=== PATIENT | female | born 1975 | race Caucasian/White ===

== ENCOUNTER 2019-04-21 20:25 | Emergency (ER) | payer BC, SELFPAY ==
[2019-04-21 20:26] VITALS: BP 118/65; PULSE 88; RESP 16; TEMP 38.8; O2SAT 99; BMI 30.3
[2019-04-21 21:23] VITALS: BP 107/73; PULSE 91; RESP 18; O2SAT 100
--- NOTE | 2019-04-21 21:43 | ED.VISSUMM ---
- ER Visit Summary Date of Service: 04/21/19 Chief Complaint: [Allergic reaction] History of Present Illness: The patient is a 44 F [the emergency department with a rash that started about 2 days ago initially. Patient states it started on her right wrist. Patient is currently on amoxicillin after having her wisdom teeth extracted about a week ago. She was placed on this empirically. Patient states the rash really worsened today and is diffuse and pruritic. Patient complains of facial redness and itching. She denies difficulty breathing. She denies difficulty swallowing. She denies recent illness otherwise and states that her teeth feel great. She has not had urinary symptoms. She did have one episode of nausea and vomiting while in the emergency department. Patient also was noted to be febrile on arrival to the emergency department.] Physical Examination: [HEENT-PERRLA, EOMI. Cranial nerves II through XII grossly intact. TMs clear. Mucous membranes moist. No adenopathy. Cardiovascular-regular rate and rhythm without murmur or ectopy Lungs-clear to auscultation, chest wall stable without crepitus or subcu emphysema Abdomen-normoactive bowel sounds, soft, nontender, no rebound or rigidity, no peritoneal signs. Skin exam-patient has a diffuse erythematous rash involving the face, trunk, and extremities. Rash is typical of a drug eruption rash. The rash is inflammatory. The rash is pruritic. There is no evidence of angioedema. No lip lesions. No ulcerations of the mucous membranes. Extremities-intact ?4, normal range of motion, normal pulses, atraumatic] Test Results: [None indicated] Emergency Department Course and Treatment: [Patient was advised to discontinue the amoxicillin and to claim an allergy to it in the future. Patient was started on prednisone. Patient was given a dose of Tylenol. It is possible patient may be coming down with a viral syndrome as well given the fever without a source.] Treatment Plan: [Patient advised to push fluids and we will treat with prednisone for 5 days. Patient use Benadryl for itching. Patient to follow-up with primary care physician in 3 to 5 days.] Disposition: [Discharged home in stable condition] Impression: [Allergic reaction to amoxicillin Fever-etiology uncertain] This note was generated with [employer] dictation software. It may contain incorrect words, spelling, and punctuation that were not noted in review of the chart prior to signing ED Disposition - Plan for ED Patient: Referrals: Care Physician,No Primary [Primary Care Provider] -
--- NOTE | 2019-04-21 21:46 | ED.DEP ---
ED Disposition - Plan for ED Patient: Instructions: ALLERGIC REACTION, Drug Prescriptions: Prednisone [Deltasone] 20 mg PO BID #10 tab Prescription Printed Referrals: Care Physician,No Primary [Primary Care Provider] - Juanito Adkins MD [STAFF PHYSICIAN] - 3-5 Days
[2019-04-21] MEDS: Acetaminophen 500 MG Tablet 1000 MG PO (21:47)
[2019-04-21] MEDS: predniSONE 20 MG Tablet 40 MG PO (21:47)
--- NOTE | 2019-04-21 21:47 | ED.DEP ---
ED Disposition - Plan for ED Patient: Instructions: ALLERGIC REACTION, Drug Prescriptions: Prednisone [Deltasone] 20 mg PO BID #10 tab Prescription Printed Ondansetron [Zofran Odt] 4 mg PO Q8H PRN PRN #10 tab PRN Reason: Nausea Prescription Printed Referrals: Juanito Adkins MD [STAFF PHYSICIAN] - 3-5 Days Care Physician,No Primary [Primary Care Provider] -
[2019-04-21 21:49] VITALS: PULSE 90; O2SAT 100
[2019-04-21] MEDS: Ondansetron ODT 4 MG Tablet PO (21:50)
== END 2019-04-21 21:52 | disposition home or self-care (01) ==
PROVIDERS: Emergency Provider Emergency Medicine
DX: L27.1 Localized skin eruption due to drugs and medicaments taken internally (principal); R50.9 Fever, unspecified; R11.2 Nausea with vomiting, unspecified; T36.0X5A Adverse effect of penicillins, initial encounter; Y92.9 Unspecified place or not applicable; Z98.818 Other dental procedure status
CPT/HCPCS: 99283; A4216

== ENCOUNTER 2019-04-23 17:27 | Observation (INO) | payer BC, SELFPAY ==
[2019-04-23] VITALS (7 sets, daily range): BP systolic 103–113; BP diastolic 53–84; PULSE 76–887; RESP 16–20; TEMP 36.8–39.4; O2SAT 94–100; BMI 30.5
[2019-04-23] MEDS: 0.9% Normal Saline 1,000 ML 15 ML IV (18:01)
[2019-04-23] MEDS: DiphenhydrAMINE 50 MG/ML Syringe 25 MG IV (18:02)
[2019-04-23 18:06] LABS: International Normalized Ratio 1.3; Prothrombin Time (Protime)PT. 16.2 SECONDS (11.7-14.9)
[2019-04-23 18:07] LABS: Partial Thromboplast Time 31.2 Seconds (24.1-36.2)
[2019-04-23 18:13] LABS: Anion Gap 5 (5-15); BUN 18 mg/dL (7-18); BUN/Creat Ratio 11.2 RATIO (10-20); Calcium,Total 7.8 mg/dL (8.5-10.1); Chloride 97 mmol/L (98-107); EST Glomerular Filtration Rate 37 mL/min (>60); Est Glom Filt Rate - Afr Amer 45 mL/min (>60); Estimated Creatinine Clearance 43.18 ml/min; Glucose 114 mg/dL (74-106); Potassium 4.1 mmol/L (3.5-5.1); Sodium Level 129 mmol/L (136-145)
[2019-04-23 18:39] LABS: Absolute Lymphocyte Count 1.06 X10^3/ul (0.83-4.51); Absolute Neutrophil Count 28.9 X10^3/uL (2.0-7.7); Basophil# 0.05 X10^3/uL; Basophil% 0.2 % (0-1); Eosinophils% 3.1 % (0-5); Hematocrit 45.2 % (37-47); Hemoglobin 15.7 g/dl (12.0-15.0); Lymphocyte # 1.06 X10^3/ul (4.0); Lymphocyte % 3.3 % (19-41); Mean Corp Hgb Conc 34.7 g/gl (32-36); Mean Corpuscular Hgb 31.8 pg (27.0-32.0); Mean Corpuscular Volume 91.7 fL (81-99); Mean Platelet Vol. 10.8 fl (6.2-12.0); Monocyte% 2.8 % (0-10); Neutrophil # 28.89 X10^3/uL (2.7-7.7); Neutrophil % 88.5 % (47-70); Platelet Count 216 K/mm3 (150-450); RBC Distribution Width CV 12.5 % (11.6-14.6); RBC Distribution Width SD 41.6 fl (35.1-43.9); Red Blood Count 4.93 M/mm3 (4.2-5.4)
[2019-04-23 18:40] LABS: POSITIVE COUNT YES; POSITIVE DIFFERENTIAL YES
[2019-04-23 18:41] LABS: Differential Indicated SCAN CRITERIA MET; POSITIVE MORPHOLOGY YES
[2019-04-23 18:42] LABS: White Blood Count 32.6 K/mm3 (4.4-11.0)
[2019-04-23] MEDS: 0.9% Normal Saline 1,000 ML 999 ML IV (19:05)
[2019-04-23 19:25] LABS: Anisocytosis RARE; Differential Comment SEE COMMENTS; Macrocytosis RARE; Platelet Estimate ADEQUATE (ADEQ)
[2019-04-23] MEDS: Acetaminophen 500 MG Tablet 1000 MG PO (19:52)
[2019-04-23 20:10] LABS: Mucous, Urine 0 SEEN /hpf (<or=2+)
[2019-04-23 20:25] LABS: Color, Urine Yellow (Yellow); Glucose, Dipstick Normal (Normal); Ketone-Dipstick 5 mg/dl (Negative); Leukocyte Esterase-Dipstick 500 /ul (Negative); Nitrite-Dipstick Negative (Negative); Occult Blood-Urine 10 /ul (Negative); Protein-Dipstick 30 mg/dl (Negative); Urine Bilirubin Dipstick Negative (Negative); Urine Clarity Clear (Clear); Urine Urobilinogen Normal (Normal)
[2019-04-23 20:39] LABS: Bacteria 1+ /hpf (None Seen); Red Blood Cells-Urine 0-5 SEEN /hpf (0-5); Squamous Epithelial Cells - UA 5-10 SEEN /hpf (5-10); White Blood Cells 50-100 SEEN /hpf (0-5)
[2019-04-23 22:22] LABS: Erythrocyte Sedimentation Rate 13 mm/hr (0-20)
--- NOTE | 2019-04-23 22:23 | ED.VISSUMM ---
- ER Visit Summary Date of Service: 04/23/19 Chief Complaint: Facial swelling History of Present Illness: The patient is a 44 F who had a dental extraction approximately April 14. She was started on amoxicillin and broke out in a rash. She was seen in this ER 2 days ago. At that time note describes diffuse rash over her face, trunk, and extremities. She was started on prednisone and her amoxicillin was stopped. Patient did have a fever on that visit. Patient reports her rash is improving and her itching is resolved but she now has swelling noted to her face. She denies throat tightness or difficulty swallowing. Physical Examination: Blood pressure is 113/84, temperature 102.8, heart rate 105, respiratory rate 17, pulse ox 99% on room air. Head neck examination reveals diffuse facial edema and erythema. There is no tongue edema noted. Posterior pharynx is normal. Heart is regular rate and rhythm. Lung sounds are clear. Abdomen is soft nontender. Skin examination reveals slightly raised rash diffusely over her face, trunk, and extremities. There is some ecchymosis noted on her forearms. Test Results: Due to continued elevation in temperature laboratory work-up was initiated. Her white count is 32.6 with 88% neutrophils. Hemoglobin is 15.7. Chemistry studies reveal a sodium of 129 and a creatinine 1.6. INR is normal. Urinalysis shows 50-100 white cells with 1+ bacteria. Emergency Department Course and Treatment: Patient was initially given Benadryl, Pepcid, and Tylenol. We did discuss the potential of facial swelling caused from steroids, but her reaction seems to be quite significant. She also has a significantly elevated white count that I cannot contribute solely to her steroids. Patient does have evidence of a UTI, but also continues to have significant rash. She will be covered with a dose of cefepime and vancomycin. Blood and urine cultures have been obtained. We will check lactic acid, CRP, and sed rate. Patient be admitted overnight for continued monitoring and medications. Treatment Plan: [] Disposition: Admit Impression: 1. Rash 2. Facial edema 3. Renal insufficiency 4. Hyponatremia 5. UTI 6. Fever This note was generated with [employer]ation software. It may contain incorrect words, spelling, and punctuation that were not noted in review of the chart prior to signing ED Disposition - Plan for ED Patient: Referrals: Care Physician,No Primary [Primary Care Provider] -
[2019-04-23 22:40] LABS: Lactic Acid 1.5 mmol/L (0.4-2.0)
--- NOTE | 2019-04-23 22:56 | HP.PCM_ITS ---
Problem List (1) Allergic reaction Status: Acute History of Present Illness Date of Admission: 04/23/19 Chief Complaint: swelling of face The patient is a 44 year old F who recently had 3 of her wisdom teeth pulled out about 6 days ago and was started on amoxicillin presenting with swelling of her face. When patient was started on amoxicillin she developed a rash on her wrists. This rash spread to her entire body. She was then given prednisone. After she had taken prednisone she developed swelling of her face and she attributes the swelling of her face to the prednisone. Past Medical History Medical History: Medical History (Last Updated 04/24/19 @ 08:52 by Isael Montague MD) Denies any previous medical history (Acute) Allergies amoxicillin Allergy (Verified 04/23/19 17:35) Hives Home Medications: Ambulatory Orders Medication Instructions Recorded Multivit-Min/Iron/Folic Acid/K 1 ea PO DAILY 04/23/19 [Multi For Her Softgel] Turmeric 400 mg PO DAILY 04/23/19 Surgical History: - - 3 wisdom teeth pulled out Lives: Spouse/ Significant Other Smoking Status: Never smoker Alcohol: None - *Family History Maternal History Items: Diabetes Paternal History Items: Heart Disease Review of Systems Constitutional: Denies: Chills, Fever, Weight Change HEENT: Denies: Head Aches, Sinus Congestion, Sinus Drainage Cardiovascular: Denies: Chest Pain, Palpitations Respiratory: Denies: Cough, Shortness of breath at rest, Sputum production Gastrointestinal: Denies: Abdominal Pain, Nausea, Vomiting Genitourinary: Denies: Dysuria Musculoskeletal: Denies: Joint Pain, Joint Tenderness Skin: Reports: Rash. Denies: Wounds Neurological: Denies: Numbness, Tingling, Focal weakness Psychiatric: Denies: Anxiety, Depression, Homicidal Ideations, Suicidal Ideations Hematologic/ Lymphatic: Denies: Easy Bruising, Easy Bleeding VTE Information - Inpt Only VTE Present on Admission: No VTE Mechan Device Prophylaxis: SCD's, None VTE Pharm Prophylaxis ordered?: Yes Patient Problems: Active and Suspected Problems Allergic reaction (Acute) - Physical Exam General: Alert, Oriented x3, Cooperative HEENT: Atraumatic, PERRLA, EOMI, Normocephalic Neck: Supple, No JVD, Negative Carotid Bruits Lungs: Clear to auscultation, Normal air movement Cardiovascular: Regular rate, No murmurs Abdomen: Bowel Sounds Present, Soft, Non Tender Extremities: No edema, Capillary Refill Less than 3 Seconds Skin: - - Facial edema with morbilliform and diffuse petechial rash on the body. Musculoskeletal: No Tenderness to Palpation of Joints or Extremities Neurological: Cranial nerves II-XII grossly intact Psych/Mental Status: Normal Affect, Appropriate Vital Signs Temp Pulse Resp BP Pulse Ox 98.4 F 79 20 H 104/59 L 95 04/23/19 22:16 04/23/19 22:16 04/23/19 22:16 04/23/19 22:16 04/23/19 22:16 Oxygen Delivery Method Room Air Weight: 88.4 kg Body Mass Index (BMI) 30.5 Laboratory Tests Past 24 Hrs 04/23/19 04/23/19 04/23/19 17:34 17:34 17:34 WBC 32.6 H* RBC 4.93 Hgb 15.7 H Hct 45.2 MCV 91.7 MCH 31.8 MCHC 34.7 RDW 12.5 RDW Differential 41.6 Plt Count 216 MPV 10.8 Immature Gran % (Auto) 2.100 H Neut % (Auto) 88.5 H Lymph % (Auto) 3.3 L [place] % (Auto) 2.8 Eos % (Auto) 3.1 Baso % (Auto) 0.2 Absolute Neuts (auto) 28.9 H Absolute Lymphs (auto) 1.06 Total Counted Not Reportable Differential Comment SEE COMMENTS Diff Path Review May foll Platelet Estimate ADEQUATE Anisocytosis RARE Macrocytosis RARE ESR PT 16.2 H INR 1.3 APTT 31.2 Sodium 129 L Potassium 4.1 Chloride 97 L Carbon Dioxide 27.0 Anion Gap 5 BUN 18 Creatinine 1.60 H Estim Creat Clear Calc 43.18 Est GFR (MDRD) Af Amer 45 L Est GFR (MDRD) Non-Af 37 L BUN/Creatinine Ratio 11.2 Glucose 114 H Lactic Acid Calcium 7.8 L C-React Prot Ext Range Urine Color Urine Clarity Urine pH Ur Specific [place] Urine Protein Urine Glucose (UA) Urine Ketones Urine Occult Blood Urine Nitrite Urine Bilirubin Urine Urobilinogen Ur Leukocyte Esterase Urine RBC Urine WBC Ur Squamous Epith Cells Urine Bacteria Urine Mucus 04/23/19 04/23/19 04/23/19 17:34 17:34 19:59 WBC RBC Hgb Hct MCV MCH MCHC RDW RDW Differential Plt Count MPV Immature Gran % (Auto) Neut % (Auto) Lymph % (Auto) [place] % (Auto) Eos % (Auto) Baso % (Auto) Absolute Neuts (auto) Absolute Lymphs (auto) Total Counted Differential Comment Diff Path Review Platelet Estimate Anisocytosis Macrocytosis ESR 13 PT INR APTT Sodium Potassium Chloride Carbon Dioxide Anion Gap BUN Creatinine Estim Creat Clear Calc Est GFR (MDRD) Af Amer Est GFR (MDRD) Non-Af BUN/Creatinine Ratio Glucose Lactic Acid Calcium C-React Prot Ext Range 136.00 H Urine Color Yellow Urine Clarity Clear Urine pH 6.[address] [place] 1.010 Urine Protein 30 H Urine Glucose (UA) Normal Urine Ketones 5 H Urine Occult Blood 10 H Urine Nitrite Negative Urine Bilirubin Negative Urine Urobilinogen Normal Ur Leukocyte Esterase 500 H Urine RBC 0-5 SEEN Urine WBC 50-100 SEEN Ur Squamous Epith Cells 5-10 SEEN Urine Bacteria 1+ Urine Mucus 0 SEEN 04/23/19 22:05 WBC RBC Hgb Hct MCV MCH MCHC RDW RDW Differential Plt Count MPV Immature Gran % (Auto) Neut % (Auto) Lymph % (Auto) [place] % (Auto) Eos % (Auto) Baso % (Auto) Absolute Neuts (auto) Absolute Lymphs (auto) Total Counted Differential Comment Diff Path Review Platelet Estimate Anisocytosis Macrocytosis ESR PT INR APTT Sodium Potassium Chloride Carbon Dioxide Anion Gap BUN Creatinine Estim Creat Clear Calc Est GFR (MDRD) Af Amer Est GFR (MDRD) Non-Af BUN/Creatinine Ratio Glucose Lactic Acid 1.5 Calcium C-React Prot Ext Range Urine Color Urine Clarity Urine pH Ur Specific [place] Urine Protein Urine Glucose (UA) Urine Ketones Urine Occult Blood Urine Nitrite Urine Bilirubin Urine Urobilinogen Ur Leukocyte Esterase Urine RBC Urine WBC Ur Squamous Epith Cells Urine Bacteria Urine Mucus Assessment/Plan All Active Problems Allergic reaction (Acute) The patient is a 44 year old F who recently had 3 of her wisdom teeth pulled out and was started on amoxicillin and later on prednisone for rash presenting with swelling of her face; diffuse body rash consistent with allergic drug reaction; also found to have abnormal urinalysis; and severely elevated leukocytosis with bandemia.. Allergic drug reaction At the emergency department patient was given vancomycin and cefepime. We will hold off vancomycin and cefepime and will consult infectious disease. Patient is stable and does not have a compromise of airway. Wound do work-up for vasculitis and ANCA ordered. CRP and ESR ordered. Hepatitis work-up ordered. Epinephrine. Ordered. Scheduled loratadine ordered. Scheduled Benadryl and PRN Benadryl ordered. Scheduled Pepcid ordered. Trend CBC and BMP Probable OLGA On presentation her creatinine was 1.60. No previous creatinine to compare with. Receive normal saline bolus in the emergency department. Ordered BMP showed that her creatinine has trended down. Will assume prerenal. However, rely OLGA from acute drug reaction. We will continue on gentle IV hydration. Avoid nephrotoxins Neutrophilic leukocytosis On presentation her white count was 32.6. This could be from prednisone use and acute drug reaction. Trend CBC. Probable cystitis Although patient has no urinary symptoms because of her acute rash and with abnormal urinalysis we will treat for UTI. Prophylaxis Subcutaneous Lovenox Code Visit Inpatient E&M: 80058 Init Hosp L3
[2019-04-24 00:15] VITALS: BP 101/61; PULSE 76; RESP 18; TEMP 36.8; O2SAT 99
[2019-04-24 00:24] VITALS: BMI 30.5
[2019-04-24] MEDS: Loratadine 10 MG Tablet PO ×2 (01:42→11:19)
[2019-04-24 05:51] VITALS: BP 137/55; PULSE 89; RESP 16; TEMP 37.7; O2SAT 100
[2019-04-24] MEDS: DiphenhydrAMINE 25 MG Capsule PO ×3 (05:55→21:42)
[2019-04-24 07:41] LABS: Anion Gap 5 (5-15); BUN 16 mg/dL (7-18); BUN/Creat Ratio 13.3 RATIO (10-20); Calcium,Total 7.2 mg/dL (8.5-10.1); Chloride 103 mmol/L (98-107); EST Glomerular Filtration Rate 52 mL/min (>60); Est Glom Filt Rate - Afr Amer 63 mL/min (>60); Estimated Creatinine Clearance 57.57 ml/min; Glucose 97 mg/dL (74-106); Potassium 4.2 mmol/L (3.5-5.1); Sodium Level 134 mmol/L (136-145)
[2019-04-24 08:24] VITALS: BP 108/61; PULSE 86; RESP 14; TEMP 38.2; O2SAT 100
--- NOTE | 2019-04-24 10:19 | PN_ITS ---
Patient Problems: Active and Suspected Problems (Last Updated 04/24/19 @ 08:52 by Isael Montague MD) Allergic reaction (Acute) Denies any previous medical history (Acute) Subjective: Chief complaint: Follow-up after admission for acute drug reaction, acute kidney injury and hyponatremia. Patient seen and examined. No acute events overnight. She still having significant rash all over her body, maculopapular rash. Swelling of the face still the same. No significant itching. Her skin is very hot to palpation. She has been having spikes of low-grade fever, blood pressure and heart rate are stable, pulse ox is maintained on room air. - Physical Exam General: Alert, Oriented x3, Cooperative, No apparent distress HEENT: Atraumatic, PERRLA, EOMI, Normocephalic Oral: Moist Mucosa, No Gingival or Mucosal Lesions/ Ulcerations Neck: Supple, No JVD, Negative Carotid Bruits, Trachea Midline, Thyroid Normal Size and Texture Lungs: Clear to auscultation, Normal air movement, No rhonchi, No wheeze, No rales, Diminished Cardiovascular: Regular rate, Regular Rhythm, Normal S1, Normal S2 Abdomen: Bowel Sounds Present, Soft, Non Tender, Non-Distended, No Hepato- splenomegaly Extremities: No clubbing, No cyanosis, No edema Skin: No breakdown, Rash Present - Diffuse maculopapular skin rash involving face, upper chest and trunk, bilateral upper and lower extremities, more marked on the face and both upper extremities. Face is diffusely swollen. Lymphatic: No Cervical, Supraclavicular, or Inguinal Adenopathy Neurological: Cranial nerves II-XII grossly intact, Motor Exam 5/5 strength throughout Psych/Mental Status: Normal Affect, Appropriate, Alert and oriented to time, place, person, mood and affect Vital Signs Temp Pulse Resp BP Pulse Ox 100.8 F H 86 14 108/61 100 04/24/19 08:24 04/24/19 08:24 04/24/19 08:24 04/24/19 08:24 04/24/19 08:24 Oxygen Delivery Method Room Air Weight: 194 lb 14.218 oz Body Mass Index (BMI) 30.5 Intake and Output for Last 24 Hours 04/22/19 04/23/19 04/24/19 23:59 23:59 23:59 Intake Total 300 / 300 Balance 300 / 300 Laboratory Tests Past 24 Hrs 04/23/19 04/23/19 04/23/19 17:34 17:34 17:34 WBC 32.6 H* RBC 4.93 Hgb 15.7 H Hct 45.2 MCV 91.7 MCH 31.8 MCHC 34.7 RDW 12.5 RDW Differential 41.6 Plt Count 216 MPV 10.8 Immature Gran % (Auto) 2.100 H Neut % (Auto) 88.5 H Lymph % (Auto) 3.3 L [place] % (Auto) 2.8 Eos % (Auto) 3.1 Baso % (Auto) 0.2 Absolute Neuts (auto) 28.9 H Absolute Lymphs (auto) 1.06 Total Counted Not Reportable Differential Comment SEE COMMENTS Diff Path Review May foll Platelet Estimate ADEQUATE Anisocytosis RARE Macrocytosis RARE ESR PT 16.2 H INR 1.3 APTT 31.2 Sodium 129 L Potassium 4.1 Chloride 97 L Carbon Dioxide 27.0 Anion Gap 5 BUN 18 Creatinine 1.60 H Estim Creat Clear Calc 43.18 Est GFR (MDRD) Af Amer 45 L Est GFR (MDRD) Non-Af 37 L BUN/Creatinine Ratio 11.2 Glucose 114 H Lactic Acid Calcium 7.8 L C-React Prot Ext Range Urine Color Urine Clarity Urine pH Ur Specific [place] Urine Protein Urine Glucose (UA) Urine Ketones Urine Occult Blood Urine Nitrite Urine Bilirubin Urine Urobilinogen Ur Leukocyte Esterase Urine RBC Urine WBC Ur Squamous Epith Cells Urine Bacteria Urine Mucus Serum Cryoglobulins [place] Screen c-ANCA Antibody p-ANCA Antibody JOSETTE-1 Antibody SS-A/Ro IgG Antibody SS-B/La IgG Antibody Sm (Adkins) Antibody WOOL SPOTTER Antibody Scl-70 Scleroderma Ab Double Strand DNA Ab Centromere B Antibody Complement C3 Complement C4 Tot Complement (CH50) Hepatitis A IgM Ab Hep Bs Antigen Hep B Core IgM Ab Hepatitis C Ab (EIA) 04/23/19 04/23/19 04/23/19 17:34 17:34 19:59 WBC RBC Hgb Hct MCV MCH MCHC RDW RDW Differential Plt Count MPV Immature Gran % (Auto) Neut % (Auto) Lymph % (Auto) [place] % (Auto) Eos % (Auto) Baso % (Auto) Absolute Neuts (auto) Absolute Lymphs (auto) Total Counted Differential Comment Diff Path Review Platelet Estimate Anisocytosis Macrocytosis ESR 13 PT INR APTT Sodium Potassium Chloride Carbon Dioxide Anion Gap BUN Creatinine Estim Creat Clear Calc Est GFR (MDRD) Af Amer Est GFR (MDRD) Non-Af BUN/Creatinine Ratio Glucose Lactic Acid Calcium C-React Prot Ext Range 136.00 H Urine Color Yellow Urine Clarity Clear Urine pH 6.0 Ur Specific [place] 1.010 Urine Protein 30 H Urine Glucose (UA) Normal Urine Ketones 5 H Urine Occult Blood 10 H Urine Nitrite Negative Urine Bilirubin Negative Urine Urobilinogen Normal Ur Leukocyte Esterase 500 H Urine RBC 0-5 SEEN Urine WBC 50-100 SEEN Ur Squamous Epith Cells 5-10 SEEN Urine Bacteria 1+ Urine Mucus 0 SEEN Serum Cryoglobulins [place] Screen c-ANCA Antibody p-ANCA Antibody JOSETTE-1 Antibody SS-A/Ro IgG Antibody SS-B/La IgG Antibody Sm (Adkins) Antibody WOOL SPOTTER Antibody Scl-70 Scleroderma Ab Double Strand DNA Ab Centromere B Antibody Complement C3 Complement C4 Tot Complement (CH50) Hepatitis A IgM Ab Hep Bs Antigen Hep B Core IgM Ab Hepatitis C Ab (EIA) 04/23/19 04/24/19 04/24/19 22:05 06:50 06:50 WBC RBC Hgb Hct MCV MCH MCHC RDW RDW Differential Plt Count MPV Immature Gran % (Auto) Neut % (Auto) Lymph % (Auto) [place] % (Auto) Eos % (Auto) Baso % (Auto) Absolute Neuts (auto) Absolute Lymphs (auto) Total Counted Differential Comment Diff Path Review Platelet Estimate Anisocytosis Macrocytosis ESR PT INR APTT Sodium Potassium Chloride Carbon Dioxide Anion Gap BUN Creatinine Estim Creat Clear Calc Est GFR (MDRD) Af Amer Est GFR (MDRD) Non-Af BUN/Creatinine Ratio Glucose Lactic Acid 1.5 Calcium C-React Prot Ext Range Urine Color Urine Clarity Urine pH Ur Specific [place] Urine Protein Urine Glucose (UA) Urine Ketones Urine Occult Blood Urine Nitrite Urine Bilirubin Urine Urobilinogen Ur Leukocyte Esterase Urine RBC Urine WBC Ur Squamous Epith Cells Urine Bacteria Urine Mucus Serum Cryoglobulins [place] Screen Pending c-ANCA Antibody p-ANCA Antibody JOSETTE-1 Antibody Pending SS-A/Ro IgG Antibody Pending SS-B/La IgG Antibody Pending Sm (Adkins) Antibody Pending [place] SPOTTER Antibody Pending Scl-70 Scleroderma Ab Pending Double Strand DNA Ab Pending Centromere B Antibody Pending Complement C3 Complement C4 Tot Complement (CH50) Hepatitis A IgM Ab Pending Hep Bs Antigen Pending Hep B Core IgM Ab Pending Hepatitis C Ab (EIA) Pending 04/24/19 04/24/19 04/24/19 06:50 06:50 06:50 WBC RBC Hgb Hct MCV MCH MCHC RDW RDW Differential Plt Count MPV Immature Gran % (Auto) Neut % (Auto) Lymph % (Auto) [place] % (Auto) Eos % (Auto) Baso % (Auto) Absolute Neuts (auto) Absolute Lymphs (auto) Total Counted Differential Comment Diff Path Review Platelet Estimate Anisocytosis Macrocytosis ESR PT INR APTT Sodium 134 L Potassium 4.2 Chloride 103 Carbon Dioxide 26.0 Anion Gap 5 BUN 16 Creatinine 1.20 H Estim Creat Clear Calc 57.57 Est GFR (MDRD) Af Amer 63 Est GFR (MDRD) Non-Af 52 L BUN/Creatinine Ratio 13.3 Glucose 97 Lactic Acid Calcium 7.2 L C-React Prot Ext Range Urine Color Urine Clarity Urine pH Ur Specific [place] Urine Protein Urine Glucose (UA) Urine Ketones Urine Occult Blood Urine Nitrite Urine Bilirubin Urine Urobilinogen Ur Leukocyte Esterase Urine RBC Urine WBC Ur Squamous Epith Cells Urine Bacteria Urine Mucus Serum Cryoglobulins Pending [place] Screen c-ANCA Antibody Pending p-ANCA Antibody Pending [place]-1 Antibody SS-A/Ro IgG Antibody SS-B/La IgG Antibody Sm (Adkins) Antibody [place] Antibody Scl-70 Scleroderma Ab Double Strand DNA Ab Centromere B Antibody Complement C3 Pending Complement C4 Pending Tot Complement (CH50) Pending Hepatitis A IgM Ab Hep Bs Antigen Hep B Core IgM Ab Hepatitis C Ab (EIA) Medical Necessity - Tobacco Use Smoking Status: Never smoker Assessment/Plan All Active Problems (Last Updated 04/24/19 @ 08:52 by Isael Montague MD) Allergic reaction (Acute) Denies any previous medical history (Acute) This is a 44 years old female patient presented to the emergency room because of diffuse skin rash, facial swelling after was started on amoxicillin after dental extraction, was started on prednisone and facial swelling worsened, found to have acute allergic reaction, significant leukocytosis and acute kidney injury as well as probable acute cystitis/pyuria. #1 acute allergic reaction: Attributed to amoxicillin. According to the patient, facial swelling worsened after prednisone. I do not think patient is allergic to prednisone and worsening facial swelling is probably coincidental. She is on p.o. Pepcid and Benadryl as well as loratadine. Apart from low-grade fever, her vital signs are stable. Plan: Change Pepcid to IV, increase IV fluids, continue Benadryl. #2 leukocytosis: Probably reactive. I doubt any infection. Chest x-ray showed no acute findings. Urinalysis revealed pyuria which is likely part of the severe allergic reaction, patient has significant leukocytosis. Her skin is hot and warm to palpation all over and this is probably the reason for her low-grade fever. She is not tachycardic, lactic acid is normal. Blood and urine cultures are pending. She is on IV Levaquin. At this time, I do not think patient has acute cystitis. I will discontinue IV Levaquin, monitor blood and urine cultures, repeat CBC and BMP tomorrow morning. #3 acute kidney injury/hypovolemic hyponatremia: Admission creatinine was 1.6. She has been on IV fluids, creatinine improved down to 1.20. Sodium improved after IV fluids. Plan to continue IV fluids, encourage oral intake, repeat BMP tomorrow morning. #4 pyuria: Urinalysis revealed 50-100 RBCs, positive for leukocyte esterase and negative for nitrite. Urine culture pending. At this time, I doubt patient has acute cystitis and I think this pyuria is part of the reactive leukocytosis. Plan to discontinue IV Levaquin, follow blood and urine cultures. #5 DVT prophylaxis: Low risk patient, no prophylaxis indicated, ambulate.. This note was generated with [employer] software. It may contain incorrect words, spelling, and punctuation that were not noted in checking the note before signing. Code Visit Inpatient E&M: 60845 Subs Hosp L2
--- NOTE | 2019-04-24 10:40 | RAD_ITS ---
STUDY: X-RAY CHEST REASON FOR EXAM: Female, 44 years old. TECHNIQUE: 2 views COMPARISON: None. FINDINGS: The lungs are clear and expanded. There is no demonstrated pleural abnormality. Normal size heart. Normal mediastinum and caryn. Normal visualized pulmonary arteries. Normal visualized aortic arch and descending thoracic aorta. Normal visualized thoracic spine. Normal visualized ribs, clavicles, and shoulders. There is no demonstrated abnormality of the visualized soft tissue structures of the upper abdomen. RAD/Chest PA and Lateral IMPRESSION: Normal x-ray examination of the chest. Electronically Signed: Alex Dotson, at 11:23 EDT Tel , Service support ,
[2019-04-24] MEDS: 0.9% NaCl Peripheral Flush Adult/Peds IV ×2 (11:19→11:22)
[2019-04-24] MEDS: Enoxaparin 40 MG/0.4 ML Syringe SC (11:19)
--- NOTE | 2019-04-24 12:18 | NURSING ---
cxr results reviewed.
--- NOTE | 2019-04-24 13:10 | CASEMGMT ---
JOSE AVILA assessment: Face to Face with patient for initial transition planning/care coordination assessment. JOSE AVILA introduced self and role at [facility], pt voices understanding and consents to assessment at this time. Pt is sitting up on side of bed in no distress at this time. Pt is A/Ox4 at this time and answers all questions approrpriately at this time. Care providers, pharmacy, and demographics verified at this time. PCP: Pt states does not currently have PCP and declines list at this time. Specialists: None currently Preferred Pharmacy: [facility] Insurance: [employer] Prescription Benefit: [employer] Living Will/HPOA: Pt states does not have LW/HPOA and declines info at this time. LNOK: Cornelius Orta, Living Arrangements: Pt states lives with in 1 1/2 story home and states no concerns at home at this time. Pt is independent with ADL's. Transportation: Pt states drives self and states no transportation concerns at this time. DME/HHC: Pt states no current DME or need for any at this time. Pt states no hx of HHC or SNF in the past. Pt states no concerns with going home at time of discharge. 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 Pt states does not smoke or drink ETOH. Pt states no further questions/concerns/needs at this time. CM to follow for any further discharge planning/needs. Advised pt to ask for CM if any further questions/concerns/needs arise, voices understanding. Pt Goal: Home Plan: [place] JOSE AVILA
[2019-04-24 13:52] VITALS: BP 113/66; PULSE 102; RESP 16; TEMP 37.6; O2SAT 96
[2019-04-24] MEDS: 0.9% Normal Saline 1,000 ML 100 ML IV (17:47)
[2019-04-24 17:54] VITALS: TEMP 38.1
[2019-04-24 19:24] VITALS: BP 128/57; PULSE 99; RESP 16; TEMP 38.1; O2SAT 95
[2019-04-25 04:52] VITALS: BP 117/61; PULSE 90; RESP 16; TEMP 37.5; O2SAT 95
[2019-04-25] MEDS: DiphenhydrAMINE 25 MG Capsule PO ×3 (04:57→21:09)
[2019-04-25 06:38] LABS: Hematocrit 37.6 % (37-47); Hemoglobin 12.4 g/dl (12.0-15.0); Mean Corpuscular Hgb 30.9 pg (27.0-32.0); Mean Corpuscular Volume 93.8 fL (81-99); Mean Platelet Vol. 10.8 fl (6.2-12.0); Platelet Count 180 K/mm3 (150-450); RBC Distribution Width CV 12.7 % (11.6-14.6); RBC Distribution Width SD 42.6 fl (35.1-43.9); Red Blood Count 4.01 M/mm3 (4.2-5.4); Scan Indicated on CBC? Y/N NO; White Blood Count 19.1 K/mm3 (4.4-11.0)
[2019-04-25 06:41] LABS: Anion Gap 7 (5-15); BUN 17 mg/dL (7-18); BUN/Creat Ratio 15.2 RATIO (10-20); Calcium,Total 7.2 mg/dL (8.5-10.1); Chloride 107 mmol/L (98-107); Creatinine, Serum 1.12 mg/dL (0.55-1.02); EST Glomerular Filtration Rate 56 mL/min (>60); Est Glom Filt Rate - Afr Amer 68 mL/min (>60); Estimated Creatinine Clearance 61.68 ml/min; Glucose 100 mg/dL (74-106); Potassium 3.8 mmol/L (3.5-5.1); Sodium Level 139 mmol/L (136-145)
[2019-04-25 08:04] VITALS: BP 103/59; PULSE 62; RESP 16; TEMP 36.6; O2SAT 95
--- NOTE | 2019-04-25 09:04 | PN_ITS ---
Patient Problems: Active and Suspected Problems (Last Updated 04/24/19 @ 08:52 by Isael Montague MD) Allergic reaction (Acute) Denies any previous medical history (Acute) Subjective: Chief complaint: Follow-up after admission for suspected acute allergic drug reaction, acute kidney injury and hyponatremia. Patient seen and examined. No acute events overnight. Swelling and rash of the face is improving, still having maculopapular rash on both extremities and upper back as well as chest. She denies any itching. She has been having spikes of low-grade fever. Other vital signs are stable. - Physical Exam General: Alert, Oriented x3, Cooperative, No apparent distress HEENT: Atraumatic, PERRLA, EOMI, Normocephalic Oral: Moist Mucosa, No Gingival or Mucosal Lesions/ Ulcerations Neck: Supple, No JVD, Negative Carotid Bruits, Trachea Midline, Thyroid Normal Size and Texture Lungs: Clear to auscultation, Normal air movement, No rhonchi, No wheeze, No rales Cardiovascular: Regular rate, Regular Rhythm, Normal S1, Normal S2 Abdomen: Bowel Sounds Present, Soft, Non Tender, Non-Distended, No Hepato- splenomegaly Extremities: No clubbing, No cyanosis, No edema Skin: No breakdown, Rash Present Lymphatic: No Cervical, Supraclavicular, or Inguinal Adenopathy Neurological: Cranial nerves II-XII grossly intact, Motor Exam 5/5 strength throughout Psych/Mental Status: Normal Affect, Appropriate Vital Signs Temp Pulse Resp BP Pulse Ox 97.9 F 62 16 103/59 L 95 04/25/19 08:04 04/25/19 08:04 04/25/19 08:04 04/25/19 08:04 04/25/19 08:04 Oxygen Delivery Method Room Air Weight: 194 lb 14.218 oz Body Mass Index (BMI) 30.5 Intake and Output for Last 24 Hours 04/23/19 04/24/19 04/25/19 23:59 23:59 23:59 Intake Total 1544 / 1544 974 / 974 Balance 1544 / 1544 974 / 974 Laboratory Tests Past 24 Hrs 04/25/19 04/25/19 05:55 05:55 WBC 19.1 H RBC 4.01 L Hgb 12.4 Hct 37.6 MCV 93.8 MCH 30.9 MCHC 33.0 RDW 12.7 RDW Differential 42.6 Plt Count 180 MPV 10.8 Sodium 139 Potassium 3.8 Chloride 107 Carbon Dioxide 25.0 Anion Gap 7 BUN 17 Creatinine 1.12 H Estim Creat Clear Calc 61.68 Est GFR (MDRD) Af Amer 68 Est GFR (MDRD) Non-Af 56 L BUN/Creatinine Ratio 15.2 Glucose 100 Calcium 7.2 L Medical Necessity - Tobacco Use Smoking Status: Never smoker Assessment/Plan All Active Problems (Last Updated 04/24/19 @ 08:52 by Isael Montague MD) Allergic reaction (Acute) Denies any previous medical history (Acute) This is a 44 years old female patient presented to the emergency room because of diffuse skin rash, facial swelling after was started on amoxicillin after dental extraction, was started on prednisone and facial swelling worsened, found to have acute allergic reaction, significant leukocytosis and acute kidney injury as well as probable acute cystitis/pyuria. #1 Probable acute allergic reaction: Attributed to amoxicillin. She is on IV Pepcid and IV Benadryl PRN. She still having skin rash although started to improve. No itching. She still has spikes of low-grade fever, other vital signs are stable. According to the patient, facial swelling worsened after prednisone. IV antibiotics discontinued yesterday. Her white blood cell count is down to 19,000, significantly improved. Plan to continue same treatment, awaiting infectious disease recommendation. #2 leukocytosis: Probably reactive. Chest x-ray showed no acute findings. Urinalysis revealed pyuria which is likely part of the severe allergic reaction, patient has significant leukocytosis, white blood cell count is trending down. Blood and urine cultures are pending. Antibiotics continued. Plan as above, continue monitoring, awaiting infectious disease recommendation. #3 acute kidney injury/hypovolemic hyponatremia: Admission creatinine was 1.6. She has been on IV fluids, creatinine improved down to 1.20, down to one-point 0.2 today. Sodium is back to normal. #4 pyuria: Urinalysis revealed 50-100 RBCs, positive for leukocyte esterase and negative for nitrite. Urine culture pending. IV Levaquin discontinued yesterday. Plan to keep off IV antibiotics, monitor cultures, awaiting infectious disease. #5 DVT prophylaxis: Low risk patient, no prophylaxis indicated, ambulate.. This note was generated with [employer] software. It may contain incorrect words, spelling, and punctuation that were not noted in checking the note before signing. Code Visit Inpatient E&M: 58615 Subs Hosp L2
[2019-04-25] MEDS: 0.9% NaCl Peripheral Flush Adult/Peds IV ×2 (09:20→21:08)
[2019-04-25] MEDS: Loratadine 10 MG Tablet PO (09:20)
[2019-04-25 11:07] VITALS: BP 105/58; PULSE 81; RESP 16; TEMP 37.5; O2SAT 98
[2019-04-25 14:07] LABS: HEPATITIS B SURFACE AG Negative (Negative); Hepatitis A IgM Antibody Negative (Negative); Hepatitis B Core AB IgM Negative (Negative)
[2019-04-25 14:12] VITALS: BP 112/67; PULSE 79; RESP 16; TEMP 37; O2SAT 97
[2019-04-25 19:57] VITALS: BP 107/64; PULSE 89; RESP 16; TEMP 37; O2SAT 98
[2019-04-26 02:00] VITALS: BP 112/55; PULSE 85; RESP 18; TEMP 37.1; O2SAT 92
[2019-04-26] MEDS: DiphenhydrAMINE 25 MG Capsule PO (06:24)
[2019-04-26 06:27] LABS: Absolute Lymphocyte Count 2.43 X10^3/ul (0.83-4.51); Basophil# 0.09 X10^3/uL; Basophil% 0.5 % (0-1); Eosinophil# 1.44 X10^3/uL; Eosinophils% 8.8 % (0-5); Hematocrit 37.4 % (37-47); Hemoglobin 12.3 g/dl (12.0-15.0); Lymphocyte # 2.43 X10^3/ul (4.0); Lymphocyte % 14.8 % (19-41); Mean Corp Hgb Conc 32.9 g/gl (32-36); Mean Corpuscular Hgb 31.3 pg (27.0-32.0); Mean Corpuscular Volume 95.2 fL (81-99); Mean Platelet Vol. 10.5 fl (6.2-12.0); Monocyte% 6.7 % (0-10); Neutrophil # 11.01 X10^3/uL (2.7-7.7); Neutrophil % 67.2 % (47-70); Platelet Count 210 K/mm3 (150-450); RBC Distribution Width CV 12.8 % (11.6-14.6); RBC Distribution Width SD 43.4 fl (35.1-43.9); Red Blood Count 3.93 M/mm3 (4.2-5.4); White Blood Count 16.4 K/mm3 (4.4-11.0)
[2019-04-26 06:28] LABS: Differential Indicated SCAN CRITERIA MET; POSITIVE COUNT NO; POSITIVE DIFFERENTIAL YES; POSITIVE MORPHOLOGY YES
[2019-04-26 07:06] LABS: Differential Comment SCANNED; Red Cell Morphology NORM C+C NORMAL (NORM C&C)
--- NOTE | 2019-04-26 09:04 | CASEMGMT ---
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 Monica Lacy UPSETTER, GAS APPLIANCE INSTALLER
[2019-04-26 09:12] VITALS: BP 107/61; PULSE 74; RESP 18; TEMP 36.7; O2SAT 97
[2019-04-26] MEDS: Loratadine 10 MG Tablet PO (09:16)
[2019-04-26] MEDS: 0.9% NaCl Peripheral Flush Adult/Peds IV (09:16)
--- NOTE | 2019-04-26 10:48 | DCINST_ITS ---
- Discharge Diagnoses Current Active Problems: Current Active and Chronic Problems (Last Updated 04/24/19 @ 08:52 by Isael Montague MD) Allergic reaction (Acute) Denies any previous medical history (Acute) Reason(s) for Visit for Discharge Instructions: Rash You will use the following diet at home:: Regular Your food should be the consistency of: Regular Your liquids should be the consistency of: Regular/Thin Discharge Activity: Return to Normal Activity Call your doctor if you observe: Fever of 101 or Higher Additional Instructions: You will be given a list of primary care doctors to choose from. Continue to take your medications as needed for itching. Continue to hydrate yourself. Keep your skin moisturized. Return back to the emergency department if your rash gets worse or you have progressive shortness of breath or swelling of the face. Allergies/Adverse Reactions: Allergies amoxicillin Allergy (Verified 04/23/19 17:35) Hives prednisone Allergy (Verified 04/24/19 00:22) Swelling Medications to take at Discharge DiphenhydrAMINE [Benadryl] 25 mg PO TID PRN #20 cap 04/26/19 Loratadine [Claritin] 10 mg PO DAILY #10 tab 04/26/19 The following prescriptions were given: DiphenhydrAMINE [Benadryl] 25 mg PO TID PRN #20 cap PRN Reason: Itching Transmission Status: Pending to [id number] Loratadine [Claritin] 10 mg PO DAILY #10 tab Transmission Status: Pending to [id number] Primary Care Physician: Care Physician,No Primary [Primary Care Provider] - Please follow up with your Primary Care Physician in: within 1-2 weeks Test Results: Test results from this visit will be discussed in further detail at your follow- up appointment, if applicable. Proposed Discharge Date: 04/26/19
--- NOTE | 2019-04-26 10:51 | PCM.DC.SUM ---
Discharge Date and Diagnosis - Problem List Patient Problems: Active and Suspected Problems (Last Updated 04/24/19 @ 08:52 by Isael Montague MD) Allergic reaction (Acute) Denies any previous medical history (Acute) Date of Admission: 04/23/19 Date of Discharge: 04/26/19 - Primary Discharge Diagnosis Active and Suspected Problems (Last Updated 04/24/19 @ 08:52 by Isael Montague MD) Allergic reaction (Acute) Leucocytosis Acute kidney injury Acute hypovolemic Hyponatremia Hospital Course and Treatment Imaging Results: Clinical Impression(s) from Imaging Studies Chest X-Ray 04/24/19 10:40 IMPRESSION: Normal x-ray examination of the chest. Electronically Signed: Alex Dotson, at 11:23 EDT Tel , Service support , ID Operations: None Procedures: None Summary of Care Provided: The patient is a 44 year old F with no significant past medical history who was admitted with diffuse skin rash, facial swelling which started after taking amoxicillin after dental extraction. Patient subsequently had gone to see his primary care doctor and was started on prednisone with worsening of the facial swelling. She was admitted for monitoring. She was found to have significant leukocytosis which was attributed to steroids and stress. She was also found to have acute kidney injury secondary to dehydration which improved with IV fluids. Patient was maintained on loratadine, Benadryl, famotidine with improvement. Her swelling and rash improved remarkably. Her leukocytosis also improved, and her hyponatremia which was secondary to dehydration was improved at the time of discharge. Patient denied having any primary care doctor. She was given a list of primary care providers to choose from. She will need to follow-up with them within 1 to 2 weeks. Patient Problems: Active and Suspected Problems (Last Updated 04/24/19 @ 08:52 by Isael Montague MD) Allergic reaction (Acute) Denies any previous medical history (Acute) Subjective: Patient was seen and examined on the day of discharge. Denied any new complaints. Able to talk. No stridor, no worsening shortness of breath - Physical Exam General: Alert, Oriented x3, Cooperative, No apparent distress HEENT: Atraumatic, PERRLA, EOMI, Normocephalic Oral: Moist Mucosa Neck: Supple Lungs: Clear to auscultation, Normal air movement Cardiovascular: Regular rate, Regular Rhythm, Normal S1, Normal S2, No murmurs Abdomen: Bowel Sounds Present, Soft, Non Tender, Non-Distended, No Hepato-splenomegaly Extremities: No edema Skin: Rash Present - Maculopapular rash in the bilateral lower extremity, worse in the sebastian, blisters over the upper extremity with papular rash, on the face also and upper part of the back. Musculoskeletal: No Tenderness to Palpation of Joints or Extremities Lymphatic: No Cervical, Supraclavicular, or Inguinal Adenopathy Neurological: Cranial nerves II-XII grossly intact, Neuro grossly intact Psych/Mental Status: Normal Affect, Appropriate Vital Signs Temp Pulse Resp BP Pulse Ox 98.1 F 74 18 107/61 97 04/26/19 09:12 04/26/19 09:12 04/26/19 09:12 04/26/19 09:12 04/26/19 09:12 Oxygen Delivery Method Room Air Weight: 88.4 kg Body Mass Index (BMI) 30.5 Intake and Output for Last 24 Hours 04/24/19 04/25/19 04/26/19 23:59 23:59 23:59 Intake Total 1544 / 1544 2574 / 2574 0 / 0 Output Total 0 / 0 Balance 1544 / 1544 2574 / 2574 0 / 0 Microbiology Past 72 Hours 04/23/19 19:59 Urine Culture - Final Urine, Clean Catch Mixed Gram Positive Organisms Laboratory Tests Past 24 Hrs 04/26/19 05:45 WBC 16.4 H RBC 3.93 L Hgb 12.3 Hct 37.4 MCV 95.2 MCH 31.3 MCHC 32.9 RDW 12.8 RDW Differential 43.4 Plt Count 210 MPV 10.5 Immature Gran % (Auto) 2.000 H Neut % (Auto) 67.2 Lymph % (Auto) 14.8 L Candler % (Auto) 6.7 Eos % (Auto) 8.8 H Baso % (Auto) 0.5 Absolute Neuts (auto) 11.0 H Absolute Lymphs (auto) 2.43 Total Counted Not Reportable Differential Comment SCANNED Diff Path Review May foll RBC Morphology NORM C+C Discharge Diet: No Restrictions Discharge Activity: Return to Normal Activity Call your doctor if you observe: Fever of 101 or Higher Home Medications: Medications to take at Discharge DiphenhydrAMINE [Benadryl] 25 mg PO TID PRN #20 cap 04/26/19 Loratadine [Claritin] 10 mg PO DAILY #10 tab 04/26/19 Following Prescrptions Were Given to Patient: DiphenhydrAMINE [Benadryl] 25 mg PO TID PRN #20 cap PRN Reason: Itching Transmission Status: Received by [id number] Loratadine [Claritin] 10 mg PO DAILY #10 tab Transmission Status: Received by [facility]/pharmacy #[id number] Primary Care Physician: Care Physician,No Primary [Primary Care Provider] - Please follow up with your Primary Care Physician in: within 1-2 weeks Disposition: Home Minutes spent on discharge:: 40 Patient Condition:: Stable Medical Necessity - Tobacco Use Smoking Status: Never smoker Tobacco Use: Non-smoker Meaningful Use Info Meaningful Use Diagnoses (Choose all that apply): None applicable Code Visit Inpatient E&M: 54696 Disch Hosp
[2019-04-26 11:22] LABS: Hep C Antibodies <0.1 s/co ratio (0.0-0.9)
--- NOTE | 2019-04-26 11:30 | CASEMGMT ---
JOSE CM in to discuss discharge needs with patient. Patient voiced no concerns. Hospitalist requested patient be setup with PCP. JOSE AVILA provided patient with list of PCPs. Patient reviewing and stated she would call and get establish with PCP of choice.
[2019-04-26 14:23] LABS: Pathologist Review Reviewed
--- NOTE | 2019-04-26 14:23 | CON.PCM_ITS ---
Problem List (1) Allergic reaction Status: Acute Reason for Consult: rash Consulted by: Dr. Marino History of Present Illness: The patient is a 44 year old F, minimal PMH, presented with acute onset rash, itching, fever after taking amoxicillin for 2 days s/p R sided wisdom teeth removal. Abx stopped, given steroids, now feeling better, rash and itching much improved. No fever. Full ROS performed and neg except as noted above. - Medical History Allergies/Adverse Reactions: Allergies amoxicillin Allergy (Verified 04/23/19 17:35) Hives prednisone Allergy (Verified 04/24/19 00:22) Swelling Home Medications: Ambulatory Orders Medication Instructions Recorded DiphenhydrAMINE [Benadryl] 25 mg PO TID PRN #20 cap 04/26/19 Loratadine [Claritin] 10 mg PO DAILY #10 tab 04/26/19 - Social History Tobacco Use: non-smoker Vital Signs Temp Pulse Resp BP Pulse Ox 98.1 F 74 18 107/61 97 04/26/19 09:12 04/26/19 09:12 04/26/19 09:12 04/26/19 09:12 04/26/19 09:12 Oxygen Delivery Method Room Air Weight: 88.4 kg Body Mass Index (BMI) 30.5 Microbiology Past 72 Hours 04/23/19 22:08 Blood Culture - Preliminary Blood Culture (Wb) - Left Hand No growth in 48 hours. 04/23/19 22:05 Blood Culture - Preliminary Blood Culture (Wb) - Anticubital Left No growth in 48 hours. 04/23/19 19:59 Urine Culture - Final Urine, Clean Catch Mixed Gram Positive Organisms Laboratory Tests Past 24 Hrs 04/24/19 04/26/19 06:50 05:45 WBC 16.4 H RBC 3.93 L Hgb 12.3 Hct 37.4 MCV 95.2 MCH 31.3 MCHC 32.9 RDW 12.8 RDW Differential 43.4 Plt Count 210 MPV 10.5 Immature Gran % (Auto) 2.000 H Neut % (Auto) 67.2 Lymph % (Auto) 14.8 L Tyrrell % (Auto) 6.7 Eos % (Auto) 8.8 H Baso % (Auto) 0.5 Absolute Neuts (auto) 11.0 H Absolute Lymphs (auto) 2.43 Total Counted Not Reportable Differential Comment SCANNED Diff Path Review May foll RBC Morphology NORM C+C Hepatitis A IgM Ab Negative Hep Bs Antigen Negative Hep B Core IgM Ab Negative Hepatitis C Ab (EIA) <0.1 - Other Studies Radiology: [] reviewed Other Studies: [] Route of nutrition/ use of supplements: [] Nutritional Intake: [] IV Site: [] Martines Catheter: [] - Physical Exam General: Alert, Oriented x3, Cooperative, No apparent distress HEENT: Atraumatic, PERRLA, EOMI Neck: Supple, No Nodes Lungs: Clear to auscultation, Normal air movement Cardiovascular: Regular rate, Regular Rhythm Abdomen: Soft, Non Tender, Non-Distended Extremities: No edema Skin: Rash Present - fading erythema on trunk, face, extremities IV Site: Peripheral, without redness Musculoskeletal: No Tenderness to Palpation of Joints or Extremities Neurological: Cranial nerves II-XII grossly intact - Assessment/Plan Antibiotics: [] Assessment/Plan: [] Active and Suspected Problems (Last Updated 04/24/19 @ 08:52 by Iasel Montague MD) Allergic reaction (Acute) Denies any previous medical history (Acute) allergic reaction to amoxicillin - improving, no sign of active infection. Ok for d/c home from ID perspective. Thank you, d/w Dr. Marino.
[2019-04-26 14:34] LABS: Pathologist Review Reviewed
[2019-04-26 15:17] VITALS: BP 107/67; PULSE 74; RESP 16; TEMP 37; O2SAT 100
[2019-04-26 17:14] LABS: ANTINUCLEAR ANTIBODIES DIRECT Negative (Negative)
[2019-04-26 20:06] LABS: Cytoplasmic Ab (C-ANCA) <1:20 titer (Neg:<1:20)
[2019-04-28 10:58] LABS: Perinuclear Ab (P-ANCA) <1:20 titer (Neg:<1:20)
[2019-04-28 17:51] LABS: Complement CH50 54
[2019-04-28 17:52] LABS: Complement C3 103
== END 2019-04-26 16:13 | disposition home or self-care (01) | DRG 607 ==
LOC: ED 17:58 → MS3 23:56
PROVIDERS: Hospitalist; Admitting Provider Hospitalist; Emergency Provider Emergency Medicine; Referring Provider Hospitalist; Visit Provider Internal Medicine
DX: L27.0 Generalized skin eruption due to drugs and medicaments taken internally (principal); E87.1 Hypo-osmolality and hyponatremia; N17.9 Acute kidney failure, unspecified; T36.0X5A Adverse effect of penicillins, initial encounter; R60.9 Edema, unspecified; D72.829 Elevated white blood cell count, unspecified; E86.0 Dehydration; Z98.818 Other dental procedure status
CPT/HCPCS: 36415; 71046; 80048; 80074; 81001; 82595; 83605; 85025; 85027; 85610; 85652; 85730; 86038; 86140; 86160; 86162; 86225; 86235; 86256; 87040; 87086; 87088; 99218; 99285; J7030; A4216; G0378; J3490

== ENCOUNTER → 2019-08-19 12:06 | Outpatient (CLI) | payer BC, SELFPAY ==
[2019-04-24 00:24] VITALS: BMI 30.5
[2019-08-19 15:35] LABS: Absolute Lymphocyte Count 2.02 X10^3/uL (0.83-4.51); Absolute Neutrophil Count 4.2 X10^3/uL (2.0-7.7); Basophil# 0.06 X10^3/uL; Basophil% 0.9 % (0-1); Eosinophil# 0.21 X10^3/uL; Hematocrit 43.4 % (37-47); Hemoglobin 14.2 g/dL (12.0-15.0); Lymphocyte # 2.02 X10^3/ul (4.0); Lymphocyte % 28.7 % (19-41); Mean Corp Hgb Conc 32.7 g/dL (32-36); Mean Corpuscular Hgb 31.4 pg (27.0-32.0); Mean Platelet Vol. 10.7 fl (6.2-12.0); Monocyte# 0.54 X10^3/uL; Monocyte% 7.7 % (0-10); NRBC Flagged by Analyzer 0 % (0-5); Neutrophil # 4.19 X10^3/uL (2.7-7.7); Neutrophil % 59.4 % (47-70); Platelet Count 265 K/mm3 (150-450); RBC Distribution Width CV 11.7 % (11.6-14.6); RBC Distribution Width SD 40.9 fl (35.1-43.9); Red Blood Count 4.52 M/mm3 (4.2-5.4)
[2019-08-19 15:55] LABS: ALB/GLOB Ratio 1.1 RATIO (0.9-2.4); AST(SGOT) 20 U/L (15-37); Alanine Aminotransfer ALT/SGPT 34 U/L (13-56); Alkaline Phosphatase 96 U/L (45-117); Anion Gap 6 (5-15); BUN 18 mg/dL (7-18); BUN/Creat Ratio 15.9 RATIO (10-20); Calcium,Total 9.4 mg/dL (8.5-10.1); Chloride 103 mmol/L (98-107); Creatinine, Serum 1.13 mg/dL (0.55-1.02); EST Glomerular Filtration Rate 55 mL/min (>60); Est Glom Filt Rate - Afr Amer 67 mL/min (>60); Ferritin 28 ng/mL (8-252); Globulin 3.6 g/dL (2.2-4.2); Glucose 81 mg/dL (74-106); Iron 93 ug/dL (50-170); Protein, Total 7.6 g/dL (6.4-8.2); Sodium Level 139 mmol/L (136-145); Thyroid Stim Hormone (TSH) 3.05 uIU/mL (0.358-3.74)
[2019-08-19 15:57] LABS: Vitamin D,25 Hydroxy 36.8 ng/mL (29.95-100.01)
[2019-08-19 16:05] LABS: Erythrocyte Sedimentation Rate 9 mm/hr (0-20)
== END ==
PROVIDERS: Family Provider Family Medicine; PCP Family Medicine; Referring Provider Family Medicine; Visit Provider Family Medicine
DX: L65.9 Nonscarring hair loss, unspecified (principal)
CPT/HCPCS: 36415; 80053; 82306; 82728; 83540; 84443; 85025; 85652